=== PATIENT | female | born 1940 | race Hispanic/Latino ===

== ENCOUNTER 2016-10-20 13:21 | Outpatient (CLI) | payer MEDICARE ==
--- NOTE | 2016-10-21 11:26 | Mammography Report ---
BILATERAL DIGITAL SCREENING MAMMOGRAM with CAD : 10/20/16 13:21:00 CLINICAL: Routine screening. COMPARISON:09/10/15 FINDINGS: The breasts are heterogeneously dense, which may obscure small masses.Stable right retroareolar benign duct ectasia. No mass, architectural distortion or suspicious calcifications. IMPRESSION: No mammographic evidence of malignancy. BI-RADS CATEGORY: 2 -- Benign RECOMMENDATION: Routine mammographic screening in one year. COMMENT: Patient follow-up letters are generated by our [employer] application.
== END 2016-10-20 13:22 | disposition home or self-care (01) ==
LOC: SPVWC 13:21
PROVIDERS: ATTEND Family Medicine
DX: Z12.31 Encounter for screening mammogram for malignant neoplasm of breast (principal)
CPT/HCPCS: 77067; G0202

== ENCOUNTER → 2018-02-02 | Outpatient (CLI) | payer MEDICARE, OTHER ==
[~2018-02-02] MED LIST: XYLOCAINE TOPICAL 4% TP ONE
== END | disposition home or self-care (01) ==
LOC: WOUND 07:57
PROVIDERS: ATTEND Surgery
DX: S81.801D Unspecified open wound, right lower leg, subsequent encounter (principal); I10 Essential (primary) hypertension; Z87.891 Personal history of nicotine dependence; X58.XXXD Exposure to other specified factors, subsequent encounter

== ENCOUNTER 2018-02-07 13:55 | Outpatient (CLI) | payer OTHER ==
[2018-02-07] MEDS ORDERED: XYLOCAINE TOPICAL 4% TP ONE (14:18)
== END 2018-02-07 13:56 | disposition home or self-care (01) ==
LOC: WOUND 13:55
PROVIDERS: ATTEND Surgery
DX: S81.801D Unspecified open wound, right lower leg, subsequent encounter (principal); I10 Essential (primary) hypertension; Z87.891 Personal history of nicotine dependence; X58.XXXD Exposure to other specified factors, subsequent encounter
CPT/HCPCS: 87075; 87076; 87116; 87186

== ENCOUNTER 2018-02-10 07:51 | Outpatient (CLI) | payer OTHER | END 2018-02-10 07:52 | disposition home or self-care (01) | LOC: WOUND 07:51 | PROVIDERS: ATTEND Surgery | DX: L97.212 Non-pressure chronic ulcer of right calf with fat layer exposed (principal); I12.9 Hypertensive chronic kidney disease with stage 1 through stage 4 chronic kidney disease, or unspecified chronic kidney disease; N18.2 Chronic kidney disease, stage 2 (mild); Z87.891 Personal history of nicotine dependence | CPT/HCPCS: 99214; G0463 ==

== ENCOUNTER 2018-02-14 09:34 | Outpatient (CLI) | payer OTHER ==
[2018-02-14] MEDS ORDERED: XYLOCAINE TOPICAL 4% TP ONE ×2 (09:58→11:16)
[2018-02-14] MEDS ORDERED: AD OINTMENT TP SCH (12:00)
== END 2018-02-14 09:35 | disposition home or self-care (01) ==
LOC: WOUND 09:34
PROVIDERS: ATTEND Surgery
DX: S81.801D Unspecified open wound, right lower leg, subsequent encounter (principal); I10 Essential (primary) hypertension; Z87.891 Personal history of nicotine dependence; X58.XXXD Exposure to other specified factors, subsequent encounter

== ENCOUNTER 2018-02-22 09:35 | Outpatient (CLI) | payer OTHER ==
[2018-02-22] MEDS ORDERED: XYLOCAINE TOPICAL 4% TP ONE ×2 (10:02→13:08)
[2018-02-22] MEDS ORDERED: SILVER NITRATE TP ONE (10:42)
== END 2018-02-22 09:36 | disposition home or self-care (01) ==
LOC: WOUND 09:35
PROVIDERS: ATTEND Surgery
DX: S81.801D Unspecified open wound, right lower leg, subsequent encounter (principal); I10 Essential (primary) hypertension; Z87.891 Personal history of nicotine dependence; X58.XXXD Exposure to other specified factors, subsequent encounter

== ENCOUNTER 2018-03-01 09:43 | Outpatient (CLI) | payer OTHER ==
[2018-03-01] MEDS ORDERED: XYLOCAINE TOPICAL 4% TP ONE ×2 (09:59→10:07)
[2018-03-01] MEDS ORDERED: AD OINTMENT TP PRN (10:00)
[2018-03-01] MEDS ORDERED: AD OINTMENT TP ONE (10:08)
== END 2018-03-01 09:44 | disposition home or self-care (01) ==
LOC: WOUND 09:43
PROVIDERS: ATTEND Surgery
DX: L97.211 Non-pressure chronic ulcer of right calf limited to breakdown of skin (principal); I12.9 Hypertensive chronic kidney disease with stage 1 through stage 4 chronic kidney disease, or unspecified chronic kidney disease; N18.2 Chronic kidney disease, stage 2 (mild); Z87.891 Personal history of nicotine dependence
CPT/HCPCS: A6250

== ENCOUNTER 2018-03-08 10:45 | Outpatient (CLI) | payer OTHER ==
[2018-03-08] MEDS ORDERED: XYLOCAINE TOPICAL 4% TP ONE ×2 (11:00→11:49)
[2018-03-08] MEDS ORDERED: SILVER NITRATE TP ONE ×2 (11:11→11:49)
== END 2018-03-08 10:46 | disposition home or self-care (01) ==
LOC: WOUND 10:45
PROVIDERS: ATTEND Surgery
DX: L97.211 Non-pressure chronic ulcer of right calf limited to breakdown of skin (principal); I12.9 Hypertensive chronic kidney disease with stage 1 through stage 4 chronic kidney disease, or unspecified chronic kidney disease; N18.2 Chronic kidney disease, stage 2 (mild); Z87.891 Personal history of nicotine dependence

== ENCOUNTER 2018-03-15 10:35 | Outpatient (CLI) | payer OTHER ==
[2018-03-15] MEDS ORDERED: XYLOCAINE TOPICAL 4% TP ONE ×2 (10:47→11:05)
== END 2018-03-15 10:36 | disposition home or self-care (01) ==
LOC: WOUND 10:35
PROVIDERS: ATTEND Surgery
DX: L97.211 Non-pressure chronic ulcer of right calf limited to breakdown of skin (principal); I12.9 Hypertensive chronic kidney disease with stage 1 through stage 4 chronic kidney disease, or unspecified chronic kidney disease; N18.2 Chronic kidney disease, stage 2 (mild); Z87.891 Personal history of nicotine dependence

== ENCOUNTER 2018-03-29 10:37 | Outpatient (CLI) | payer OTHER | END 2018-03-29 10:38 | disposition home or self-care (01) | LOC: WOUND 10:37 | PROVIDERS: ATTEND Surgery | DX: L97.211 Non-pressure chronic ulcer of right calf limited to breakdown of skin (principal); I12.9 Hypertensive chronic kidney disease with stage 1 through stage 4 chronic kidney disease, or unspecified chronic kidney disease; N18.2 Chronic kidney disease, stage 2 (mild); Z87.891 Personal history of nicotine dependence | CPT/HCPCS: 97597 ==